=== PATIENT | male | born 1940 | race Caucasian/White ===

== ENCOUNTER 2017-12-03 13:28 | Inpatient (IN) | payer MEDICARE ==
[~2017-12-03] VITALS: Ht 172.7 cm; Wt 97.7 kg
[~2017-12-03 13:28] MED LIST: ASCO500C15 PO; ASPI-1264 PO; ATOR40TA71 PO; CALC-393 PO; CHOL100046 PO; DABI150C PO; FURO-150 PO; LACT1CAP57 PO; LISI-604 PO; METF500T7 PO; METO-395 PO; MULT1TAB74 PO; NALT50TA PO; OMEG1CAP13 PO; RISP0.5T3 PO; TRAV5DRO EACHEYE
[2017-12-03 14:02] LABS: BASOPHILS # (AUTO) 0.1 X10'3 (0-0.2); BASOPHILS % (AUTO) 0.6 % (0-1); EOSINOPHILS # (AUTO) 0.6 X10'3 (0-0.9); EOSINOPHILS % (AUTO) 5.8 % (0-6); HEMATOCRIT 38.1 % (42.0-52.0); HEMOGLOBIN 13.4 g/dl (14.0-17.9); LYMPHOCYTES # (AUTO) 2.6 X10'3 (1.1-4.8); LYMPHOCYTES % (AUTO) 26.2 % (21-51); MEAN CORPUSCULAR HEMOGLOBIN 30.5 PG (27.0-31.0); MEAN CORPUSCULAR VOLUME 87.1 FL (78-98); MEAN PLATELET VOLUME 7.4 FL (7.4-10.4); MONOCYTES # (AUTO) 1.3 X10'3 (0-0.9); MONOCYTES % (AUTO) 12.7 % (2-12); NEUTROPHILS # (AUTO) 5.5 X10'3 (1.8-7.7); NEUTROPHILS % (AUTO) 54.7 % (42-75); PLATELET COUNT 257 X10'3 (140-440); RED BLOOD COUNT 4.38 X10'6 (4.70-6.10); RED CELL DISTRIBUTION WIDTH 14.9 % (11.5-14.5); WHITE BLOOD COUNT 10.1 X10'3 (4.5-11.0)
[2017-12-03 14:12] LABS: INR 1.5 INR; PARTIAL THROMBOPLASTIN TIME 46 SECONDS (22-32); PROTHROMBIN TIME 15.1 SECONDS (9.0-12.0)
[2017-12-03 14:17] LABS: ALANINE AMINOTRANSFERASE 33 U/L (12-78); ALBUMIN 3.3 G/DL (3.4-5.0); ALBUMIN/GLOBULIN RATIO 0.9 (1.1-1.5); ALKALINE PHOSPHATASE 77 IU/L (46-116); ANION GAP 9 (8-16); ASPARTATE AMINO TRANSFERASE 26 U/L (10-37); BILIRUBIN,TOTAL 0.8 MG/DL (0.1-1.0); BLOOD UREA NITROGEN 11 MG/DL (7-18); BUN/CREATININE RATIO 14.7 (5.4-32.0); CALCIUM 9.2 MG/DL (8.5-10.1); CHLORIDE 97 MMOL/L (99-107); CREATININE 0.75 MG/DL (0.60-1.10); GLUCOSE 139 MG/DL (70-104); POTASSIUM 4.2 MMOL/L (3.5-5.1); SODIUM 134 MMOL/L (135-145); TOTAL PROTEIN 7.1 G/DL (6.4-8.2); eGFR > 90 ML/MIN
[2017-12-03] MEDS ORDERED: insulin Lispro (HumaLOG) vial - multi-dose SQ SCH (17:10)
[2017-12-03] MEDS ORDERED: mag hydrox/Alum hydrox/simeth 30ml oral suspension PO PRN (17:10)
[2017-12-03] MEDS ORDERED: MESSAGE TO PHARMACY PO ONE (17:10)
[2017-12-03] MEDS ORDERED: acetaminophen 325mg tablet PO PRN (17:10)
[2017-12-03] MEDS ORDERED: dextrose ORAL solution 15 GM/59 ML bottle PO PRN ×2 (17:10)
[2017-12-03] MEDS ORDERED: dextrose 50%-water 50ml dispensing syringe IV PRN ×2 (17:10)
[2017-12-03] MEDS ORDERED: magnesium hydroxide 30ml (MOM) UD suspension PO PRN (17:10)
[2017-12-03] MEDS ORDERED: glucagon, human recombinant 1mg kit SUBCUT PRN (17:10)
[2017-12-03] MEDS: normal saline 1000ml 1,000 ML IV SCH (17:32)
[2017-12-03 17:39] LABS: MAGNESIUM 1.9 MG/DL (1.5-2.4)
[2017-12-03 17:46] LABS: HEMOGLOBIN A1C 6.4 % (4.5-6.2)
[2017-12-03] MEDS: lactobacillus rhamnosus 10,000 MMU CELLS/CAPSULE PO SCH (20:00)
[2017-12-03] MEDS: dabigatran 150mg capsule PO SCH (20:00)
[2017-12-03] MEDS: ondansetron/PF 4mg/2ml inj IV PRN (20:06)
[2017-12-03 20:22] LABS: CLARITY,URINE Clear (Clear); COLOR,URINE Dark Yellow (Yellow); GLUCOSE, URINE Negative (Neg); KETONES,URINE Negative (Neg); LEUKOCYTE ESTERASE ,URINE Negative (Neg); NITRITES, URINE Negative (Neg); OCCULT BLOOD,URINE Negative (Neg); PH,URINE 8.5 (4.8-8.0); PROTEIN,URINE Negative (Neg)
[2017-12-03 20:24] LABS: UA COLLECTION TYPE VOIDED
[2017-12-03] MEDS: insulin glargine (Lantus) pen - multi-dose SQ SCH (21:00)
[2017-12-03] MEDS: risperiDONE 0.5mg tablet PO SCH (23:08)
[2017-12-04] MEDS: normal saline 1000ml 1,000 ML IV SCH ×3 (03:07→23:07)
[2017-12-04 06:26] LABS: BASOPHILS # (AUTO) 0.1 X10'3 (0-0.2); BASOPHILS % (AUTO) 0.8 % (0-1); EOSINOPHILS # (AUTO) 0.2 X10'3 (0-0.9); EOSINOPHILS % (AUTO) 1.8 % (0-6); HEMATOCRIT 38.2 % (42.0-52.0); HEMOGLOBIN 13.4 g/dl (14.0-17.9); LYMPHOCYTES # (AUTO) 2.5 X10'3 (1.1-4.8); LYMPHOCYTES % (AUTO) 19.5 % (21-51); MEAN CORPUSCULAR HEMOGLOBIN 30.9 PG (27.0-31.0); MEAN CORPUSCULAR VOLUME 88.3 FL (78-98); MEAN PLATELET VOLUME 8.1 FL (7.4-10.4); MONOCYTES # (AUTO) 1.3 X10'3 (0-0.9); MONOCYTES % (AUTO) 10.3 % (2-12); NEUTROPHILS # (AUTO) 8.7 X10'3 (1.8-7.7); NEUTROPHILS % (AUTO) 67.6 % (42-75); PLATELET COUNT 247 X10'3 (140-440); RED BLOOD COUNT 4.33 X10'6 (4.70-6.10); WHITE BLOOD COUNT 12.9 X10'3 (4.5-11.0)
[2017-12-04] MEDS ORDERED: SYN0.088T PO (06:34)
[2017-12-04] MEDS ORDERED: XAL0.005OS OP (06:36)
[2017-12-04] MEDS ORDERED: ESCI10TA54 PO (06:37)
[2017-12-04 06:54] LABS: ALANINE AMINOTRANSFERASE 30 U/L (12-78); ALBUMIN 3.2 G/DL (3.4-5.0); ALBUMIN/GLOBULIN RATIO 0.8 (1.1-1.5); ALKALINE PHOSPHATASE 71 IU/L (46-116); ANION GAP 10 (8-16); ASPARTATE AMINO TRANSFERASE 27 U/L (10-37); BILIRUBIN,TOTAL 1.4 MG/DL (0.1-1.0); BLOOD UREA NITROGEN 11 MG/DL (7-18); BUN/CREATININE RATIO 15.1 (5.4-32.0); CALCIUM 9.3 MG/DL (8.5-10.1); CHLORIDE 100 MMOL/L (99-107); CREATININE 0.73 MG/DL (0.60-1.10); GLUCOSE 126 MG/DL (70-104); POTASSIUM 4.1 MMOL/L (3.5-5.1); SODIUM 135 MMOL/L (135-145); eGFR > 90 ML/MIN
[2017-12-04] MEDS ORDERED: ASCORBIC ACID PO SCH (08:00)
[2017-12-04] MEDS ORDERED: LACTOBACILLUS ACIDOPHILUS PO SCH (08:00)
[2017-12-04] MEDS: dabigatran 150mg capsule PO SCH ×2 (08:00→19:56)
[2017-12-04] MEDS ORDERED: risperiDONE 0.5mg tablet PO SCH (08:00)
[2017-12-04] MEDS: ascorbic acid 500mg tablet PO SCH (08:00)
[2017-12-04] MEDS: risperiDONE 0.5mg tablet PO SCH ×2 (08:00→19:56)
[2017-12-04] MEDS ORDERED: VITAMIN D3 PO SCH (08:00)
[2017-12-04] MEDS ORDERED: CALCIUM CITRATE PO SCH (08:00)
[2017-12-04] MEDS ORDERED: non-formulary drug (Atorvastatin Calcium 1 TABLET) PO SCH (08:00)
[2017-12-04 10:00] VITALS: BP 140/60
[2017-12-04] MEDS: atorvastatin 20mg tablet PO SCH (10:15)
[2017-12-04] MEDS: aspirin 325mg tablet PO SCH (10:15)
[2017-12-04] MEDS: calcium carbonate/vitamin D3 tablet PO SCH (10:15)
[2017-12-04] MEDS: lactobacillus rhamnosus 10,000 MMU CELLS/CAPSULE PO SCH ×2 (10:15→19:56)
[2017-12-04] MEDS: haloperidol lactate 5mg/ml inj IM PRN ×2 (16:57→17:00)
[2017-12-04] MEDS ORDERED: iohexol 350MG/ML 100ml bottle IV ONE (17:31)
[2017-12-04] MEDS: insulin glargine (Lantus) pen - multi-dose SQ SCH (21:00)
[2017-12-04 22:36] VITALS: BP 140/66
[2017-12-05] MEDS: LORazepam 2 mg/ml vial IV PRN ×2 (02:05→10:28)
[2017-12-05 02:18] VITALS: BP 149/79
[2017-12-05 06:00] VITALS: BP 152/79
[2017-12-05 06:23] LABS: BASOPHILS # (AUTO) 0.1 X10'3 (0-0.2); BASOPHILS % (AUTO) 0.5 % (0-1); EOSINOPHILS # (AUTO) 0.4 X10'3 (0-0.9); EOSINOPHILS % (AUTO) 3.3 % (0-6); HEMATOCRIT 35.8 % (42.0-52.0); HEMOGLOBIN 12.5 g/dl (14.0-17.9); LYMPHOCYTES # (AUTO) 2.8 X10'3 (1.1-4.8); MEAN CORPUSCULAR HEMOGLOBIN 30.7 PG (27.0-31.0); MEAN CORPUSCULAR HGB CONC 34.9 % (33.0-36.5); MEAN CORPUSCULAR VOLUME 88.1 FL (78-98); MONOCYTES # (AUTO) 1.5 X10'3 (0-0.9); MONOCYTES % (AUTO) 12.3 % (2-12); NEUTROPHILS # (AUTO) 7.4 X10'3 (1.8-7.7); NEUTROPHILS % (AUTO) 60.9 % (42-75); PLATELET COUNT 244 X10'3 (140-440); RED BLOOD COUNT 4.07 X10'6 (4.70-6.10); RED CELL DISTRIBUTION WIDTH 14.5 % (11.5-14.5); WHITE BLOOD COUNT 12.1 X10'3 (4.5-11.0)
[2017-12-05 06:50] LABS: ALANINE AMINOTRANSFERASE 28 U/L (12-78); ALBUMIN 3.1 G/DL (3.4-5.0); ALBUMIN/GLOBULIN RATIO 0.8 (1.1-1.5); ALKALINE PHOSPHATASE 66 IU/L (46-116); ANION GAP 7 (8-16); ASPARTATE AMINO TRANSFERASE 31 U/L (10-37); BILIRUBIN,TOTAL 1.9 MG/DL (0.1-1.0); BLOOD UREA NITROGEN 10 MG/DL (7-18); BUN/CREATININE RATIO 14.1 (5.4-32.0); CALCIUM 9.4 MG/DL (8.5-10.1); CHLORIDE 104 MMOL/L (99-107); CHOL/HDL RATIO 2.3 (0.00-4.99); CHOLESTEROL 114 MG/DL (0-200); CREATININE 0.71 MG/DL (0.60-1.10); GLUCOSE 100 MG/DL (70-104); HDL CHOLESTEROL 49 MG/DL (35-60); LDL CHOLESTEROL 56 MG/DL (50-100); POTASSIUM 4.2 MMOL/L (3.5-5.1); SODIUM 139 MMOL/L (135-145); TOTAL CARBON DIOXIDE 27.9 MMOL/L (24-32); TOTAL PROTEIN 6.8 G/DL (6.4-8.2); TRIGLYCERIDES 56 MG/DL (20-135); eGFR > 90 ML/MIN
[2017-12-05 10:00] VITALS: BP 139/87
[2017-12-05] MEDS: dabigatran 150mg capsule PO SCH ×2 (10:29→21:09)
[2017-12-05] MEDS: atorvastatin 20mg tablet PO SCH (10:29)
[2017-12-05] MEDS: calcium carbonate/vitamin D3 tablet PO SCH (10:30)
[2017-12-05] MEDS: aspirin 325mg tablet PO SCH (10:30)
[2017-12-05] MEDS: ascorbic acid 500mg tablet PO SCH (10:30)
[2017-12-05] MEDS: lactobacillus rhamnosus 10,000 MMU CELLS/CAPSULE PO SCH ×2 (10:51→21:10)
[2017-12-05] MEDS: risperiDONE 0.5mg tablet PO SCH ×2 (10:51→21:10)
[2017-12-05] MEDS ORDERED: iohexol 350MG/ML 100ml bottle IV ONE (11:28)
[2017-12-05 15:00] VITALS: BP 146/79
[2017-12-05] MEDS: normal saline 1000ml 1,000 ML IV SCH ×2 (19:04→19:07)
[2017-12-05] MEDS: insulin glargine (Lantus) pen - multi-dose SQ SCH (21:00)
[2017-12-05 22:00] VITALS: BP 144/86
[2017-12-06] MEDS: LORazepam 2 mg/ml vial IV PRN (00:40)
[2017-12-06 02:00] VITALS: BP 132/70
[2017-12-06] MEDS: normal saline 1000ml 1,000 ML IV SCH ×2 (05:07→15:07)
[2017-12-06 06:00] VITALS: BP 129/87
[2017-12-06 06:00] LABS: BASOPHILS # (AUTO) 0.1 X10'3 (0-0.2); BASOPHILS % (AUTO) 0.6 % (0-1); EOSINOPHILS # (AUTO) 0.6 X10'3 (0-0.9); EOSINOPHILS % (AUTO) 4.4 % (0-6); HEMATOCRIT 38.4 % (42.0-52.0); HEMOGLOBIN 13.6 g/dl (14.0-17.9); LYMPHOCYTES # (AUTO) 2.5 X10'3 (1.1-4.8); LYMPHOCYTES % (AUTO) 18.4 % (21-51); MEAN CORPUSCULAR HEMOGLOBIN 30.8 PG (27.0-31.0); MEAN CORPUSCULAR HGB CONC 35.3 % (33.0-36.5); MEAN CORPUSCULAR VOLUME 87.4 FL (78-98); MONOCYTES # (AUTO) 1.7 X10'3 (0-0.9); MONOCYTES % (AUTO) 12.3 % (2-12); NEUTROPHILS # (AUTO) 8.7 X10'3 (1.8-7.7); NEUTROPHILS % (AUTO) 64.3 % (42-75); PLATELET COUNT 252 X10'3 (140-440); RED CELL DISTRIBUTION WIDTH 14.8 % (11.5-14.5); WHITE BLOOD COUNT 13.5 X10'3 (4.5-11.0)
[2017-12-06 06:21] LABS: ALANINE AMINOTRANSFERASE 29 U/L (12-78); ALBUMIN 3.2 G/DL (3.4-5.0); ALBUMIN/GLOBULIN RATIO 0.8 (1.1-1.5); ALKALINE PHOSPHATASE 72 IU/L (46-116); ANION GAP 11 (8-16); ASPARTATE AMINO TRANSFERASE 29 U/L (10-37); BILIRUBIN,TOTAL 2.3 MG/DL (0.1-1.0); BLOOD UREA NITROGEN 10 MG/DL (7-18); BUN/CREATININE RATIO 14.9 (5.4-32.0); CALCIUM 9.5 MG/DL (8.5-10.1); CHLORIDE 101 MMOL/L (99-107); CREATININE 0.67 MG/DL (0.60-1.10); GLUCOSE 105 MG/DL (70-104); POTASSIUM 3.9 MMOL/L (3.5-5.1); SODIUM 138 MMOL/L (135-145); TOTAL CARBON DIOXIDE 25.8 MMOL/L (24-32); TOTAL PROTEIN 7.2 G/DL (6.4-8.2); eGFR > 90 ML/MIN
[2017-12-06] MEDS: dabigatran 150mg capsule PO SCH ×2 (09:16→21:23)
[2017-12-06] MEDS: calcium carbonate/vitamin D3 tablet PO SCH (09:16)
[2017-12-06] MEDS: risperiDONE 0.5mg tablet PO SCH ×2 (09:16→21:23)
[2017-12-06] MEDS: aspirin 325mg tablet PO SCH (09:16)
[2017-12-06] MEDS: lactobacillus rhamnosus 10,000 MMU CELLS/CAPSULE PO SCH ×2 (09:16→21:23)
[2017-12-06] MEDS: atorvastatin 20mg tablet PO SCH (09:16)
[2017-12-06] MEDS: ascorbic acid 500mg tablet PO SCH (09:17)
[2017-12-06 10:00] VITALS: BP 135/81
[2017-12-06 17:00] VITALS: BP 137/78
[2017-12-06] MEDS: insulin glargine (Lantus) pen - multi-dose SQ SCH (21:00)
[2017-12-06 22:00] VITALS: BP 154/77
[2017-12-07 06:00] VITALS: BP 111/90
[2017-12-07 06:35] LABS: BASOPHILS % (AUTO) 0.3 % (0-1); EOSINOPHILS # (AUTO) 0.5 X10'3 (0-0.9); EOSINOPHILS % (AUTO) 4.6 % (0-6); HEMATOCRIT 38.4 % (42.0-52.0); HEMOGLOBIN 13.2 g/dl (14.0-17.9); LYMPHOCYTES % (AUTO) 17.5 % (21-51); MEAN CORPUSCULAR HEMOGLOBIN 30.4 PG (27.0-31.0); MEAN CORPUSCULAR HGB CONC 34.4 % (33.0-36.5); MEAN CORPUSCULAR VOLUME 88.3 FL (78-98); MEAN PLATELET VOLUME 7.8 FL (7.4-10.4); MONOCYTES # (AUTO) 1.7 X10'3 (0-0.9); MONOCYTES % (AUTO) 14.2 % (2-12); NEUTROPHILS # (AUTO) 7.4 X10'3 (1.8-7.7); NEUTROPHILS % (AUTO) 63.4 % (42-75); PLATELET COUNT 252 X10'3 (140-440); RED BLOOD COUNT 4.35 X10'6 (4.70-6.10); RED CELL DISTRIBUTION WIDTH 14.8 % (11.5-14.5); WHITE BLOOD COUNT 11.7 X10'3 (4.5-11.0)
[2017-12-07 07:09] LABS: ALANINE AMINOTRANSFERASE 28 U/L (12-78); ALBUMIN 3.1 G/DL (3.4-5.0); ALBUMIN/GLOBULIN RATIO 0.8 (1.1-1.5); ALKALINE PHOSPHATASE 71 IU/L (46-116); ANION GAP 10 (8-16); ASPARTATE AMINO TRANSFERASE 29 U/L (10-37); BILIRUBIN,TOTAL 2.3 MG/DL (0.1-1.0); BLOOD UREA NITROGEN 10 MG/DL (7-18); BUN/CREATININE RATIO 15.2 (5.4-32.0); CALCIUM 9.3 MG/DL (8.5-10.1); CHLORIDE 104 MMOL/L (99-107); CREATININE 0.66 MG/DL (0.60-1.10); GLUCOSE 114 MG/DL (70-104); POTASSIUM 3.6 MMOL/L (3.5-5.1); SODIUM 140 MMOL/L (135-145); eGFR > 90 ML/MIN
[2017-12-07] MEDS: atorvastatin 20mg tablet PO SCH (07:47)
[2017-12-07] MEDS: risperiDONE 0.5mg tablet PO SCH ×2 (07:48→20:12)
[2017-12-07] MEDS: lactobacillus rhamnosus 10,000 MMU CELLS/CAPSULE PO SCH ×2 (07:48→20:12)
[2017-12-07] MEDS: dabigatran 150mg capsule PO SCH ×2 (07:48→20:12)
[2017-12-07] MEDS: ascorbic acid 500mg tablet PO SCH (07:48)
[2017-12-07] MEDS: calcium carbonate/vitamin D3 tablet PO SCH (07:48)
[2017-12-07] MEDS: aspirin 325mg tablet PO SCH (07:48)
[2017-12-07 10:00] VITALS: BP 130/55
[2017-12-07 18:00] VITALS: BP 133/62
[2017-12-07] MEDS: insulin glargine (Lantus) pen - multi-dose SQ SCH (21:00)
[2017-12-07 22:00] VITALS: BP 112/67
[2017-12-08 05:28] LABS: BASOPHILS # (AUTO) 0.1 X10'3 (0-0.2); BASOPHILS % (AUTO) 0.6 % (0-1); EOSINOPHILS # (AUTO) 0.7 X10'3 (0-0.9); EOSINOPHILS % (AUTO) 5.9 % (0-6); HEMATOCRIT 39.2 % (42.0-52.0); HEMOGLOBIN 13.7 g/dl (14.0-17.9); LYMPHOCYTES % (AUTO) 25.8 % (21-51); MEAN CORPUSCULAR HEMOGLOBIN 30.5 PG (27.0-31.0); MEAN CORPUSCULAR HGB CONC 34.9 % (33.0-36.5); MEAN CORPUSCULAR VOLUME 87.2 FL (78-98); MEAN PLATELET VOLUME 7.9 FL (7.4-10.4); MONOCYTES # (AUTO) 1.2 X10'3 (0-0.9); MONOCYTES % (AUTO) 10.9 % (2-12); NEUTROPHILS # (AUTO) 6.5 X10'3 (1.8-7.7); NEUTROPHILS % (AUTO) 56.8 % (42-75); PLATELET COUNT 260 X10'3 (140-440); RED CELL DISTRIBUTION WIDTH 14.4 % (11.5-14.5); WHITE BLOOD COUNT 11.4 X10'3 (4.5-11.0)
[2017-12-08 05:44] LABS: ALANINE AMINOTRANSFERASE 27 U/L (12-78); ALBUMIN/GLOBULIN RATIO 0.8 (1.1-1.5); ALKALINE PHOSPHATASE 76 IU/L (46-116); ANION GAP 11 (8-16); ASPARTATE AMINO TRANSFERASE 27 U/L (10-37); BILIRUBIN,TOTAL 2.1 MG/DL (0.1-1.0); BLOOD UREA NITROGEN 10 MG/DL (7-18); BUN/CREATININE RATIO 14.7 (5.4-32.0); CALCIUM 9.3 MG/DL (8.5-10.1); CHLORIDE 102 MMOL/L (99-107); CREATININE 0.68 MG/DL (0.60-1.10); GLUCOSE 103 MG/DL (70-104); POTASSIUM 3.8 MMOL/L (3.5-5.1); SODIUM 138 MMOL/L (135-145); TOTAL CARBON DIOXIDE 25.3 MMOL/L (24-32); TOTAL PROTEIN 6.9 G/DL (6.4-8.2); eGFR > 90 ML/MIN
[2017-12-08 06:00] VITALS: BP 140/81
[2017-12-08] MEDS: risperiDONE 0.5mg tablet PO SCH ×2 (07:28→19:43)
[2017-12-08] MEDS: aspirin 325mg tablet PO SCH (07:28)
[2017-12-08] MEDS: lactobacillus rhamnosus 10,000 MMU CELLS/CAPSULE PO SCH ×2 (07:28→19:43)
[2017-12-08] MEDS: atorvastatin 20mg tablet PO SCH (07:28)
[2017-12-08] MEDS: ascorbic acid 500mg tablet PO SCH (07:28)
[2017-12-08] MEDS: calcium carbonate/vitamin D3 tablet PO SCH (07:28)
[2017-12-08] MEDS: dabigatran 150mg capsule PO SCH ×2 (07:29→19:43)
[2017-12-08 10:00] VITALS: BP 145/84
[2017-12-08] MEDS ORDERED: bisacodyl 10mg suppository rectal RC PRN (12:50)
[2017-12-08 18:00] VITALS: BP 142/71
[2017-12-08] MEDS: insulin glargine (Lantus) pen - multi-dose SQ SCH (21:00)
[2017-12-08 22:00] VITALS: BP 133/56
[2017-12-09] MEDS: LORazepam 2 mg/ml vial IV PRN (00:14)
[2017-12-09 06:00] VITALS: BP 152/79
[2017-12-09] MEDS: atorvastatin 20mg tablet PO SCH (09:14)
[2017-12-09] MEDS: dabigatran 150mg capsule PO SCH ×2 (09:14→20:45)
[2017-12-09] MEDS: aspirin 325mg tablet PO SCH (09:15)
[2017-12-09] MEDS: calcium carbonate/vitamin D3 tablet PO SCH (09:15)
[2017-12-09] MEDS: lactobacillus rhamnosus 10,000 MMU CELLS/CAPSULE PO SCH ×2 (09:15→20:45)
[2017-12-09] MEDS: risperiDONE 0.5mg tablet PO SCH ×2 (09:15→20:45)
[2017-12-09] MEDS: ascorbic acid 500mg tablet PO SCH (09:15)
[2017-12-09] MEDS: polyvinyl alcohol ophthalmic drops 15ml bottle EACHEYE PRN ×2 (09:18→20:48)
[2017-12-09 10:00] VITALS: BP 155/83
[2017-12-09] MEDS: ondansetron/PF 4mg/2ml inj IV PRN (13:21)
[2017-12-09] MEDS ORDERED: lactulose 20gm/30ml cup PO ONE (14:25)
[2017-12-09] MEDS ORDERED: mineral oil 133ml enema RC PRN (14:30)
[2017-12-09 15:00] VITALS: BP 129/72
[2017-12-09 18:00] VITALS: BP 140/71
[2017-12-09] MEDS: insulin glargine (Lantus) pen - multi-dose SQ SCH (21:00)
[2017-12-09 22:00] VITALS: BP 150/77
[2017-12-10 05:51] LABS: BASOPHILS # (AUTO) 0.1 X10'3 (0-0.2); BASOPHILS % (AUTO) 0.7 % (0-1); EOSINOPHILS # (AUTO) 0.8 X10'3 (0-0.9); EOSINOPHILS % (AUTO) 6.7 % (0-6); HEMATOCRIT 39.8 % (42.0-52.0); HEMOGLOBIN 13.8 g/dl (14.0-17.9); LYMPHOCYTES # (AUTO) 2.7 X10'3 (1.1-4.8); LYMPHOCYTES % (AUTO) 22.2 % (21-51); MEAN CORPUSCULAR HEMOGLOBIN 30.5 PG (27.0-31.0); MEAN CORPUSCULAR HGB CONC 34.7 % (33.0-36.5); MEAN PLATELET VOLUME 7.8 FL (7.4-10.4); MONOCYTES # (AUTO) 1.4 X10'3 (0-0.9); MONOCYTES % (AUTO) 11.7 % (2-12); NEUTROPHILS # (AUTO) 7.3 X10'3 (1.8-7.7); NEUTROPHILS % (AUTO) 58.7 % (42-75); PLATELET COUNT 284 X10'3 (140-440); RED BLOOD COUNT 4.52 X10'6 (4.70-6.10); RED CELL DISTRIBUTION WIDTH 14.8 % (11.5-14.5); WHITE BLOOD COUNT 12.4 X10'3 (4.5-11.0)
[2017-12-10 06:00] VITALS: BP 118/72
[2017-12-10 06:42] LABS: ALANINE AMINOTRANSFERASE 27 U/L (12-78); ALBUMIN/GLOBULIN RATIO 0.7 (1.1-1.5); ALKALINE PHOSPHATASE 81 IU/L (46-116); ANION GAP 10 (8-16); ASPARTATE AMINO TRANSFERASE 27 U/L (10-37); BILIRUBIN,TOTAL 1.9 MG/DL (0.1-1.0); BLOOD UREA NITROGEN 8 MG/DL (7-18); BUN/CREATININE RATIO 11.8 (5.4-32.0); CALCIUM 9.6 MG/DL (8.5-10.1); CHLORIDE 104 MMOL/L (99-107); CREATININE 0.68 MG/DL (0.60-1.10); GLUCOSE 98 MG/DL (70-104); POTASSIUM 3.9 MMOL/L (3.5-5.1); SODIUM 139 MMOL/L (135-145); TOTAL CARBON DIOXIDE 25.2 MMOL/L (24-32); TOTAL PROTEIN 7.1 G/DL (6.4-8.2); eGFR > 90 ML/MIN
[2017-12-10] MEDS: lactobacillus rhamnosus 10,000 MMU CELLS/CAPSULE PO SCH (08:30)
[2017-12-10] MEDS: ascorbic acid 500mg tablet PO SCH (08:30)
[2017-12-10] MEDS: calcium carbonate/vitamin D3 tablet PO SCH (08:30)
[2017-12-10] MEDS: dabigatran 150mg capsule PO SCH (08:30)
[2017-12-10] MEDS: aspirin 325mg tablet PO SCH (08:30)
[2017-12-10] MEDS: atorvastatin 20mg tablet PO SCH (08:30)
[2017-12-10] MEDS: risperiDONE 0.5mg tablet PO SCH (08:30)
[2017-12-10] MEDS: polyvinyl alcohol ophthalmic drops 15ml bottle EACHEYE PRN (08:33)
[2017-12-10 10:00] VITALS: BP 131/66
[2017-12-10] MEDS: LORazepam 2 mg/ml vial IV PRN (14:41)
== END 2017-12-10 15:05 | DRG 65 ==
LOC: ER 13:28 → ED HOLD 17:07 → ORTHO 4S 12-04 09:00
PROVIDERS: ADMIT Family Medicine; ATTEND Family Medicine
PROC: B3251ZZ Computerized Tomography (CT Scan) of Bilateral Common Carotid Arteries using Low Osmolar Contrast (ICD-10-PCS; principal; 2017-12-05)
PROC: B32G1ZZ Computerized Tomography (CT Scan) of Bilateral Vertebral Arteries using Low Osmolar Contrast (ICD-10-PCS; 2017-12-05)
PROC: B3201ZZ Computerized Tomography (CT Scan) of Thoracic Aorta using Low Osmolar Contrast (ICD-10-PCS; 2017-12-05)
PROC: B3281ZZ Computerized Tomography (CT Scan) of Bilateral Internal Carotid Arteries using Low Osmolar Contrast (ICD-10-PCS; 2017-12-05)
DX: I63.10 Cerebral infarction due to embolism of unspecified precerebral artery (principal); G81.94 Hemiplegia, unspecified affecting left nondominant side; L89.322 Pressure ulcer of left buttock, stage 2; I48.91 Unspecified atrial fibrillation; I49.5 Sick sinus syndrome; D72.829 Elevated white blood cell count, unspecified; E11.9 Type 2 diabetes mellitus without complications; E78.00 Pure hypercholesterolemia, unspecified; F03.90 Unspecified dementia, unspecified severity, without behavioral disturbance, psychotic disturbance, mood disturbance, and anxiety; I10 Essential (primary) hypertension; K56.41 Fecal impaction; H53.2 Diplopia; I49.3 Ventricular premature depolarization; Z66 Do not resuscitate; Z79.01 Long term (current) use of anticoagulants; Z79.82 Long term (current) use of aspirin; Z79.899 Other long term (current) drug therapy; Z87.891 Personal history of nicotine dependence; Z82.3 Family history of stroke; Z82.5 Family history of asthma and other chronic lower respiratory diseases; Z82.49 Family history of ischemic heart disease and other diseases of the circulatory system
CPT/HCPCS: 36415; 70450; 70496; 70498; 71045; 80053; 80061; 81003; 82248; 82948; 83036; 83735; 84145; 85025; 85610; 85730; 87040; 87070; 92616; 93005; 93306; 93880; 97110; 97116; 97161; 97530; 99285; A6212; A6449; J1630; J1815; J2060; J2405; J7030; Q9967

== ENCOUNTER 2019-04-14 18:59 | Inpatient (IN) | payer MEDICARE, MEDICAID ==
[~2019-04-14] VITALS: Ht 175.3 cm; Wt 100.0 kg
[~2019-04-14 18:59] MED LIST changes: -CHOL100046 PO; +ESCI10TA54 PO; -FURO-150 PO; -LACT1CAP57 PO; -METF500T7 PO; -MULT1TAB74 PO; -NALT50TA PO; -RISP0.5T3 PO; +SYN0.088T PO; -TRAV5DRO EACHEYE; +XAL0.005OS OP
--- NOTE | 2019-04-14 19:30 | NUR ---
ATTEMPTED TO PLACE F/C ON ARRIVAL TO ED, UNABLE TO ADVANCE CATHETER. I ATTEMPTED TWO TIMES. KIM GATICA NOTIFIED AND UROLOGIST CONTACTED.
[2019-04-14] MEDS ORDERED: morphine 4 MG/ML inj SYRINge IV ONE (19:35)
[2019-04-14] MEDS ORDERED: ondansetron/PF 4mg/2ml inj IV ONE (19:35)
[2019-04-14] MEDS ORDERED: normal saline 1000ML IV soln IV ONE (19:50)
[2019-04-14 19:59] LABS: BASOPHILS # (AUTO) 0.1 X10'3 (0-0.2); BASOPHILS % (AUTO) 0.7 % (0-1); EOSINOPHILS # (AUTO) 0.2 X10'3 (0-0.9); EOSINOPHILS % (AUTO) 1.6 % (0-6); HEMATOCRIT 39.3 % (42.0-52.0); HEMOGLOBIN 13.1 g/dl (14.0-17.9); LYMPHOCYTES # (AUTO) 1.1 X10'3 (1.1-4.8); MEAN CORPUSCULAR HEMOGLOBIN 29.5 PG (27.0-31.0); MEAN CORPUSCULAR HGB CONC 33.3 g/dL (33.0-36.5); MEAN CORPUSCULAR VOLUME 88.7 FL (78-98); MEAN PLATELET VOLUME 7.7 FL (7.4-10.4); MONOCYTES # (AUTO) 0.2 X10'3 (0-0.9); NEUTROPHILS # (AUTO) 10.4 X10'3 (1.8-7.7); NEUTROPHILS % (AUTO) 86.7 % (42-75); PLATELET COUNT 223 X10'3 (140-440); RED BLOOD COUNT 4.43 X10'6 (4.70-6.10); RED CELL DISTRIBUTION WIDTH 14.6 % (11.5-14.5)
[2019-04-14 20:12] LABS: ALANINE AMINOTRANSFERASE 46 U/L (12-78); ALBUMIN 2.6 G/DL (3.4-5.0); ALBUMIN/GLOBULIN RATIO 0.5 (1.1-1.5); ALKALINE PHOSPHATASE 102 IU/L (46-116); ANION GAP 9 (8-16); ASPARTATE AMINO TRANSFERASE 56 U/L (10-37); BLOOD UREA NITROGEN 19 MG/DL (7-18); BUN/CREATININE RATIO 16.1 (5.4-32.0); CALCIUM 8.8 MG/DL (8.5-10.1); CHLORIDE 101 MMOL/L (99-107); CREATININE 1.18 MG/DL (0.60-1.10); GLUCOSE 115 MG/DL (70-104); SODIUM 136 MMOL/L (135-145); TOTAL CARBON DIOXIDE 25.8 MMOL/L (24-32); TOTAL PROTEIN 7.4 G/DL (6.4-8.2); eGFR 60 ML/MIN
[2019-04-14] MEDS ORDERED: LIDOcaine 2% 10ml TOPICAL JELLY (Urojet) MM ONE ×2 (20:45→21:35)
[2019-04-14] MEDS ORDERED: normal saline 1000ML IV soln IVB ONE (21:15)
[2019-04-14] MEDS ORDERED: CefTRIAXone 2gm/D5W 50ml 50 ML IV ONE (21:15)
[2019-04-14] MEDS ORDERED: acetaminophen 325mg tablet PO PRN ×2 (21:45)
[2019-04-14] MEDS ORDERED: ondansetron/PF 4mg/2ml inj IV PRN (21:45)
[2019-04-14] MEDS ORDERED: magnesium hydroxide 30ml (MOM) UD suspension PO PRN (21:45)
[2019-04-14] MEDS ORDERED: magnesium 4gm in 100ml NS 100 ML IV PRN (21:45)
[2019-04-14] MEDS ORDERED: magnesium Cl slow-release 64mg tablet PO PRN (21:45)
[2019-04-14] MEDS ORDERED: potassium Cl 20 mEq SR tablet PO PRN ×2 (21:45)
[2019-04-14] MEDS ORDERED: magnesium 2GM in 50ml NS 50 ML IV PRN (21:45)
[2019-04-14] MEDS ORDERED: mag hydrox/Alum hydrox/simeth 30ml oral suspension PO PRN (21:45)
[2019-04-14] MEDS ORDERED: morphine 2 MG/ML inj. syringe IV PRN ×2 (21:45)
[2019-04-14] MEDS ORDERED: potassium CL 10mEq/100ml bag 100 ML IV PRN ×2 (21:45)
--- NOTE | 2019-04-14 22:02 | NUR ---
UROLOGIST AT BEDSIDE.
--- NOTE | 2019-04-14 22:40 | NUR ---
Received report from Torsten MASON. Will assume patient care.
--- NOTE | 2019-04-14 23:01 | NUR ---
UROLOGIST PLACED F/C, F/C IS SET UP WITH CBI, URINE IS CLEAR YELLOW. F/C IS PATENT AND DRAINING.
--- NOTE | 2019-04-14 23:30 | NUR ---
Patient arrived to floor with continuous irrigation. Urine is clearing, yellow and cloudy in color. Rate going is really slow. Per transport nurse Dr. Kimball wanted it at that rate. Family accompanied patient. Jannie will come back in the morning to answer admitting questions. Per daughter and . Patient has dementia, Baseline line he is confuse and tugs on tubing.
[2019-04-15] VITALS: BP 106/50
[2019-04-15] MEDS ORDERED: normal saline 1000ml 1,000 ML IV ONE (00:20)
--- NOTE | 2019-04-15 00:20 | NUR ---
Dr. Villaseñor notified. Orders for CBI, nurse to adjust rate for urine to be yellow. Continue with Sterile Irrigation fluids with CBI. MD aware no UA was done, He would like one still with the CBI. Will continue with care.
--- NOTE | 2019-04-15 00:40 | NUR ---
Xraytechnician here to obtain CxR.
--- NOTE | 2019-04-15 01:00 | NUR ---
UA collected and sent to lab.
[2019-04-15 01:59] LABS: CLARITY,URINE CLEAR (Clear); COLOR,URINE YELLOW (Yellow); GLUCOSE, URINE NEGATIVE (Neg); KETONES,URINE NEGATIVE (Neg); LEUKOCYTE ESTERASE ,URINE LARGE (Neg); NITRITES, URINE NEGATIVE (Neg); OCCULT BLOOD,URINE LARGE (Neg); PROTEIN,URINE NEGATIVE (Neg); UROBILINOGEN,URINE 0.2 E.U/dL (0.2-1.0)
[2019-04-15 02:00] LABS: UA COLLECTION TYPE URINAL
[2019-04-15 02:06] LABS: BACTERIA,URINE NONE SEEN /HPF (Neg); SQUAMOUS EPITHELIAL CELL,UR FEW /LPF (FEW)
[2019-04-15 02:07] LABS: MUCUS STRANDS NONE SEEN /LPF (Neg)
[2019-04-15] MEDS ORDERED: [UNRECOGNIZED DRUG - CODE] PO (02:26)
[2019-04-15] MEDS ORDERED: LOPE-144 PO (02:59)
[2019-04-15] MEDS ORDERED: MELA3TAB64 PO (02:59)
[2019-04-15] MEDS ORDERED: RISP0.5T74 PO ×2 (02:59)
[2019-04-15] MEDS ORDERED: CHOL400T32 PO (02:59)
[2019-04-15] MEDS ORDERED: NA P133E4 RC (02:59)
[2019-04-15] MEDS ORDERED: METF500T PO (02:59)
[2019-04-15] MEDS ORDERED: AMOX-422 PO (02:59)
[2019-04-15] MEDS ORDERED: FURO-150 PO (02:59)
[2019-04-15] MEDS ORDERED: TOLT4CAP PO (02:59)
[2019-04-15] MEDS ORDERED: DOCU100C41 PO (02:59)
[2019-04-15] MEDS ORDERED: POLY17PO10 PO (02:59)
[2019-04-15] MEDS ORDERED: CRAN450C PO (02:59)
[2019-04-15] MEDS ORDERED: BISA10SU60 PR (02:59)
[2019-04-15] MEDS ORDERED: ACET-2119 PO (02:59)
[2019-04-15] MEDS ORDERED: dextrose ORAL solution 15 GM/59 ML bottle PO PRN ×2 (03:25)
[2019-04-15] MEDS ORDERED: insulin Lispro (HumaLOG) vial - multi-dose SQ SCH (03:25)
[2019-04-15] MEDS ORDERED: dextrose 50%-water 50ml dispensing syringe IV PRN ×2 (03:25)
[2019-04-15] MEDS ORDERED: polyethylene glycol 3350 17gm powd pack PO PRN (03:25)
[2019-04-15] MEDS ORDERED: MESSAGE TO PHARMACY PO ONE (03:25)
[2019-04-15] MEDS ORDERED: glucagon, human recombinant 1mg kit SUBCUT PRN (03:25)
[2019-04-15 05:21] LABS: BASOPHILS # (AUTO) 0.1 X10'3 (0-0.2); BASOPHILS % (AUTO) 0.4 % (0-1); EOSINOPHILS % (AUTO) 0.1 % (0-6); HEMATOCRIT 34.2 % (42.0-52.0); HEMOGLOBIN 11.4 g/dl (14.0-17.9); LYMPHOCYTES # (AUTO) 1.3 X10'3 (1.1-4.8); MEAN CORPUSCULAR HEMOGLOBIN 29.7 PG (27.0-31.0); MEAN CORPUSCULAR HGB CONC 33.2 g/dL (33.0-36.5); MEAN CORPUSCULAR VOLUME 89.5 FL (78-98); MEAN PLATELET VOLUME 8.5 FL (7.4-10.4); MONOCYTES # (AUTO) 2.3 X10'3 (0-0.9); MONOCYTES % (AUTO) 8.9 % (2-12); NEUTROPHILS # (AUTO) 21.9 X10'3 (1.8-7.7); NEUTROPHILS % (AUTO) 85.6 % (42-75); PLATELET COUNT 203 X10'3 (140-440); RED BLOOD COUNT 3.82 X10'6 (4.70-6.10); RED CELL DISTRIBUTION WIDTH 14.4 % (11.5-14.5)
[2019-04-15 05:25] LABS: ALBUMIN 2.1 G/DL (3.4-5.0); ANION GAP 10 (8-16); BLOOD UREA NITROGEN 18 MG/DL (7-18); BUN/CREATININE RATIO 19.6 (5.4-32.0); CALCIUM 8.1 MG/DL (8.5-10.1); CHLORIDE 104 MMOL/L (99-107); CREATININE 0.92 MG/DL (0.60-1.10); GLUCOSE 138 MG/DL (70-104); MAGNESIUM 1.8 MG/DL (1.5-2.4); POTASSIUM 4.2 MMOL/L (3.5-5.1); SODIUM 138 MMOL/L (135-145); TOTAL CARBON DIOXIDE 24.4 MMOL/L (24-32); eGFR 79 ML/MIN
[2019-04-15 06:00] LABS: WHITE BLOOD COUNT 25.5 X10'3 (4.5-11.0)
--- NOTE | 2019-04-15 06:10 | NUR ---
Critical WBC 25.5. Dr. Villaseñor notified.
--- NOTE | 2019-04-15 06:37 | NUR ---
Problems reprioritized. Patient report given, questions answered & plan of care reviewed with Karthik MASON.
[2019-04-15 06:48] VITALS: BP 140/72
[2019-04-15] MEDS: oxybutynin 5mg tablet PO SCH ×3 (07:43→20:29)
[2019-04-15] MEDS: lactobacillus rhamnosus 10,000 MMU CELLS/CAPSULE PO SCH ×2 (07:43→19:10)
[2019-04-15] MEDS: atorvastatin 20mg tablet PO SCH (07:43)
[2019-04-15] MEDS: cholecalciferol (vitamin D) 400 unit tablet PO SCH (07:44)
[2019-04-15] MEDS: metoprolol succinate 25mg (24-HOUR) SR. Tablet PO SCH ×2 (07:44→19:10)
[2019-04-15] MEDS: calcium carbonate/vitamin D3 tablet PO SCH (07:44)
[2019-04-15] MEDS: levoTHYROXINE 88mcg tablet PO SCH (07:44)
[2019-04-15] MEDS: furosemide 20MG tablet PO SCH (07:44)
[2019-04-15] MEDS: lisinopril 5mg tablet PO SCH (07:45)
[2019-04-15] MEDS: ascorbic acid 500mg tablet PO SCH (07:45)
[2019-04-15] MEDS: risperiDONE 0.5mg tablet PO SCH (07:45)
[2019-04-15] MEDS: K and/or MAG REPLACEMENT MC SCH (07:51)
[2019-04-15] MEDS ORDERED: NA PHOS M B RC SCH (08:00)
[2019-04-15] MEDS ORDERED: NA PHOS DI BA RC SCH (08:00)
[2019-04-15] MEDS ORDERED: CRANBERRY FRUIT 450 MG PO SCH (08:00)
[2019-04-15 08:49] LABS: NUCLEATED RED BLOOD CELLS 15 /100WBC (0-0); TOTAL CELLS COUNTED 100
[2019-04-15 08:50] LABS: PLATELET ESTIMATE NORMAL
[2019-04-15] MEDS ORDERED: pneumococcal 23-VAL P-sac vacc 25 mcg/0.5ml vial IMVAC ONE (10:00)
[2019-04-15 10:57] VITALS: BP 100/55
[2019-04-15] MEDS: HYDROcodone/acetaminophen 5mg/325mg tablet PO PRN (16:12)
--- NOTE | 2019-04-15 18:16 | NUR ---
Received report from ISABELLA Angeles. Patient is awake and alert on room air, in no apparent distress. Call light and items of frequent use within reach. Will continue to monitor.
--- NOTE | 2019-04-15 18:24 | NUR ---
Problems reprioritized. Patient report given, questions answered & plan of care reviewed with ISABELLA MORALES.
[2019-04-15 20:00] VITALS: BP 102/55
[2019-04-15] MEDS: docusate sod 100mg capsule PO SCH (20:29)
[2019-04-15] MEDS: Melatonin 3mg tablet PO SCH (20:29)
[2019-04-15] MEDS: CefTRIAXone 2gm/D5W 50ml 50 ML IV SCH (20:30)
[2019-04-15] MEDS: risperiDONE 0.25mg tablet PO SCH (20:36)
[2019-04-15] MEDS: insulin glargine (Lantus) pen - multi-dose SQ SCH (20:39)
[2019-04-16] VITALS: BP 112/62
--- NOTE | 2019-04-16 01:12 | NUR ---
PCT notified that patient suddenly developed shortness of breath and wheezing, oozed blood from penis as well. Lungs bilaterally wheezy and diminished at bases upon auscultation. SpO2 91% on room air, placed on 2L O2 and saturation came up to 95%. Antonieta Roldan MD and came to bedside for evaluation. Ordered CXR single view, Lasix 40mg/4mL and RT eval and treat. Will continue to monitor.
[2019-04-16] MEDS ORDERED: furosemide 40mg/4ml inj IV ONE (01:25)
--- NOTE | 2019-04-16 01:28 | NUR ---
Bladder scanned patient upon MD order. No (0 cc) amount of urine was found in bladder. MD Yuli stated that "it seems to be flash pulmonary edema. Give the one time dose of Lasix 40mg now, he should have at least 250 cc urine output. Then do chest xray and see what RT says. Thank you" Administered Lasix 40mg along with ISABELLA Gunn as ordered. Xray aviation survival technician and PCT at beside. Will continue to monitor.
[2019-04-16] MEDS ORDERED: albuterol 2.5 MG/3 ML nebule NEB ONE (01:45)
--- NOTE | 2019-04-16 02:10 | NUR ---
Patient resting comfortably. PCT at bedside.
--- NOTE | 2019-04-16 03:56 | NUR ---
Patient denies any pain, discomfort at this time. Resting comfortably. PCT at bedside.
[2019-04-16 04:51] LABS: BASOPHILS # (AUTO) 0.1 X10'3 (0-0.2); BASOPHILS % (AUTO) 0.8 % (0-1); EOSINOPHILS # (AUTO) 0.1 X10'3 (0-0.9); EOSINOPHILS % (AUTO) 1.1 % (0-6); HEMATOCRIT 33.6 % (42.0-52.0); HEMOGLOBIN 11.4 g/dl (14.0-17.9); LYMPHOCYTES # (AUTO) 1.5 X10'3 (1.1-4.8); LYMPHOCYTES % (AUTO) 11.3 % (21-51); MEAN CORPUSCULAR HEMOGLOBIN 29.4 PG (27.0-31.0); MEAN CORPUSCULAR HGB CONC 33.8 g/dL (33.0-36.5); MEAN CORPUSCULAR VOLUME 87.1 FL (78-98); MEAN PLATELET VOLUME 7.8 FL (7.4-10.4); MONOCYTES # (AUTO) 1.7 X10'3 (0-0.9); MONOCYTES % (AUTO) 12.7 % (2-12); NEUTROPHILS # (AUTO) 9.6 X10'3 (1.8-7.7); NEUTROPHILS % (AUTO) 74.1 % (42-75); PLATELET COUNT 208 X10'3 (140-440); RED BLOOD COUNT 3.86 X10'6 (4.70-6.10); RED CELL DISTRIBUTION WIDTH 14.1 % (11.5-14.5)
[2019-04-16 05:23] LABS: ALBUMIN 2.3 G/DL (3.4-5.0); ANION GAP 10 (8-16); BLOOD UREA NITROGEN 17 MG/DL (7-18); BUN/CREATININE RATIO 18.5 (5.4-32.0); CALCIUM 8.4 MG/DL (8.5-10.1); CHLORIDE 99 MMOL/L (99-107); CREATININE 0.92 MG/DL (0.60-1.10); GLUCOSE 127 MG/DL (70-104); MAGNESIUM 1.9 MG/DL (1.5-2.4); POTASSIUM 3.5 MMOL/L (3.5-5.1); SODIUM 135 MMOL/L (135-145); TOTAL CARBON DIOXIDE 25.6 MMOL/L (24-32); eGFR 79 ML/MIN
--- NOTE | 2019-04-16 06:05 | NUR ---
Problems reprioritized. Patient report given, questions answered & plan of care reviewed with ISABELLA Angeles.
--- NOTE | 2019-04-16 06:15 | NUR ---
Patient in room [facility] 346. I have received report from ISABELLA MORALES and had the opportunity to ask questions and assume patient care.
[2019-04-16 07:00] VITALS: BP 124/65
[2019-04-16] MEDS: K and/or MAG REPLACEMENT MC SCH (08:54)
[2019-04-16] MEDS: oxybutynin 5mg tablet PO SCH ×3 (08:55→21:29)
[2019-04-16] MEDS: risperiDONE 0.5mg tablet PO SCH (08:55)
[2019-04-16] MEDS: lisinopril 5mg tablet PO SCH (08:56)
[2019-04-16] MEDS: levoTHYROXINE 88mcg tablet PO SCH (08:56)
[2019-04-16] MEDS: furosemide 20MG tablet PO SCH (08:56)
[2019-04-16] MEDS: cholecalciferol (vitamin D) 400 unit tablet PO SCH (08:56)
[2019-04-16] MEDS: calcium carbonate/vitamin D3 tablet PO SCH (08:56)
[2019-04-16] MEDS: atorvastatin 20mg tablet PO SCH (08:56)
[2019-04-16] MEDS: lactobacillus rhamnosus 10,000 MMU CELLS/CAPSULE PO SCH ×2 (08:56→21:29)
[2019-04-16] MEDS: metoprolol succinate 25mg (24-HOUR) SR. Tablet PO SCH ×2 (08:56→21:29)
[2019-04-16] MEDS: ascorbic acid 500mg tablet PO SCH (08:57)
[2019-04-16] MEDS ORDERED: pneumococcal 23-VAL P-sac vacc 25 mcg/0.5ml vial IMVAC ONE (10:00)
[2019-04-16 12:10] VITALS: BP 123/71
[2019-04-16] MEDS: HYDROcodone/acetaminophen 5mg/325mg tablet PO PRN (17:55)
--- NOTE | 2019-04-16 18:22 | NUR ---
Problems reprioritized. Patient report given, questions answered & plan of care reviewed with REINA Hameed RN.
--- NOTE | 2019-04-16 18:26 | NUR ---
Patient in room [facility] 346. I have received report from ISABELLA Wesley and had the opportunity to ask questions and assume patient care. Addendum: 04/16/19 at 1827 by Priscila Curiel RN Amended: Links added.
[2019-04-16 20:00] VITALS: BP 145/66
[2019-04-16] MEDS: insulin glargine (Lantus) pen - multi-dose SQ SCH (21:00)
[2019-04-16] MEDS: docusate sod 100mg capsule PO SCH (21:29)
[2019-04-16] MEDS: Melatonin 3mg tablet PO SCH (21:29)
[2019-04-16] MEDS: risperiDONE 0.25mg tablet PO SCH (21:29)
[2019-04-16] MEDS: CefTRIAXone 2gm/D5W 50ml 50 ML IV SCH (21:46)
[2019-04-17] VITALS: BP 113/66
[2019-04-17 04:55] LABS: BASOPHILS # (AUTO) 0.1 X10'3 (0-0.2); EOSINOPHILS # (AUTO) 0.2 X10'3 (0-0.9); EOSINOPHILS % (AUTO) 1.7 % (0-6); HEMOGLOBIN 11.7 g/dl (14.0-17.9); MEAN CORPUSCULAR HEMOGLOBIN 29.8 PG (27.0-31.0); NEUTROPHILS # (AUTO) 9.1 X10'3 (1.8-7.7)
[2019-04-17 04:57] LABS: BASOPHILS % (AUTO) 0.8 % (0-1); LYMPHOCYTES # (AUTO) 1.7 X10'3 (1.1-4.8); LYMPHOCYTES % (AUTO) 12.9 % (21-51); MEAN CORPUSCULAR HGB CONC 34.4 g/dL (33.0-36.5); MEAN CORPUSCULAR VOLUME 86.6 FL (78-98); MEAN PLATELET VOLUME 7.9 FL (7.4-10.4); MONOCYTES # (AUTO) 1.9 X10'3 (0-0.9); MONOCYTES % (AUTO) 14.3 % (2-12); NEUTROPHILS % (AUTO) 70.3 % (42-75); PLATELET COUNT 237 X10'3 (140-440); RED BLOOD COUNT 3.93 X10'6 (4.70-6.10); RED CELL DISTRIBUTION WIDTH 14.1 % (11.5-14.5)
[2019-04-17 05:04] LABS: ALBUMIN 2.2 G/DL (3.4-5.0); ANION GAP 8 (8-16); BLOOD UREA NITROGEN 17 MG/DL (7-18); BUN/CREATININE RATIO 21.3 (5.4-32.0); CALCIUM 8.7 MG/DL (8.5-10.1); CHLORIDE 100 MMOL/L (99-107); GLUCOSE 111 MG/DL (70-104); POTASSIUM 3.6 MMOL/L (3.5-5.1); SODIUM 135 MMOL/L (135-145); eGFR > 90 ML/MIN
--- NOTE | 2019-04-17 06:38 | NUR ---
Problems reprioritized. Patient report given, questions answered & plan of care reviewed with ISABELLA Cuellar.
[2019-04-17 07:30] VITALS: BP 128/81
[2019-04-17] MEDS: K and/or MAG REPLACEMENT MC SCH (07:33)
[2019-04-17] MEDS: calcium carbonate/vitamin D3 tablet PO SCH (07:40)
[2019-04-17] MEDS: metoprolol succinate 25mg (24-HOUR) SR. Tablet PO SCH (07:42)
[2019-04-17] MEDS: lactobacillus rhamnosus 10,000 MMU CELLS/CAPSULE PO SCH (07:42)
[2019-04-17] MEDS: atorvastatin 20mg tablet PO SCH (07:42)
[2019-04-17] MEDS: cholecalciferol (vitamin D) 400 unit tablet PO SCH (07:44)
[2019-04-17] MEDS: ascorbic acid 500mg tablet PO SCH (07:44)
[2019-04-17] MEDS: lisinopril 5mg tablet PO SCH (07:44)
[2019-04-17] MEDS: furosemide 20MG tablet PO SCH (07:44)
[2019-04-17] MEDS: oxybutynin 5mg tablet PO SCH ×2 (07:44→13:04)
[2019-04-17] MEDS: levoTHYROXINE 88mcg tablet PO SCH (07:45)
[2019-04-17] MEDS: risperiDONE 0.5mg tablet PO SCH (07:49)
--- NOTE | 2019-04-17 10:33 | NUR ---
UNABLE TO DISCHARGE PT AT THIS TIME. NEED CLARIFICATION FROM MD CONCERNING PT. TEMPERATURE AND SHAVER CATHETER.
[2019-04-17 11:37] VITALS: BP 111/68
--- NOTE | 2019-04-17 11:37 | NUR ---
PAGER ID: [phone] MESSAGE: [phone] WENDY WOLF CANNOT D/C PT. UNTIL RECEIVE ORDER CLARIFICATION. PLEASE CALL ME AT [phone]
--- NOTE | 2019-04-17 12:09 | NUR ---
SPOKE WITH MD HUFFMAN. MELANIE TO D/C TEMP.RESOLVED... PT WILL BE DC'D ON ATB. SHAVER ORDER PER PROTOCOL FOR ACUTE RETENTION. WAITING FOR MD TO COMPLETE DISCHARGE.
--- NOTE | 2019-04-17 13:36 | NUR ---
Called to give report to CLARENCE Machado. She had a chance to ask any questions she needed to and has this nurses contact information for any other concerns.
--- NOTE | 2019-04-17 15:55 | NUR ---
Pt. transferred to [facility] at 1556. VSS at time of discharge. IV removed, pressure bandage applied, no s/sx bleeding noted. Transfer packet given to [employer] staff, DNR on top. Report called to facility. They are aware they are receiving patient. Patient left on a gurney to [facility], escorted by two [employer] staff. Belongings sent with pt. is aware of transfer. Antibiotic orders in transfer packet.
--- NOTE | 2019-04-17 16:11 | NUR ---
equipment monitor phototypesetting left on pt. during transfer. Called [employer] as pt. had just left. They were unable to reach their drivers. Called . nurse taking pt. stated the would return tele monitor to [employer] and let them know to return it to us or call us. They have this nurse's contact information.
== END 2019-04-17 16:00 | DRG 698 ==
LOC: ER 19:01 → SUR 3N 23:26 → CMPBEDREQ 23:50
PROVIDERS: ADMIT Hospitalist; ATTEND Hospitalist
PROC: 0T9B80Z Drainage of Bladder with Drainage Device, Via Natural or Artificial Opening Endoscopic (ICD-10-PCS; principal; 2019-04-14)
PROC: 3E0234Z Introduction of Serum, Toxoid and Vaccine into Muscle, Percutaneous Approach (ICD-10-PCS; 2019-04-16)
DX: T83.518A Infection and inflammatory reaction due to other urinary catheter, initial encounter (principal); A41.9 Sepsis, unspecified organism; G92 Toxic encephalopathy; N39.0 Urinary tract infection, site not specified; N36.5 Urethral false passage; R31.9 Hematuria, unspecified; E11.9 Type 2 diabetes mellitus without complications; E78.00 Pure hypercholesterolemia, unspecified; Z66 Do not resuscitate; E07.9 Disorder of thyroid, unspecified; F03.90 Unspecified dementia, unspecified severity, without behavioral disturbance, psychotic disturbance, mood disturbance, and anxiety; I10 Essential (primary) hypertension; I48.91 Unspecified atrial fibrillation; Z82.49 Family history of ischemic heart disease and other diseases of the circulatory system; Z82.3 Family history of stroke; Z23 Encounter for immunization; Z82.5 Family history of asthma and other chronic lower respiratory diseases; Z79.02 Long term (current) use of antithrombotics/antiplatelets; Z86.73 Personal history of transient ischemic attack (TIA), and cerebral infarction without residual deficits; Z79.82 Long term (current) use of aspirin; Z79.899 Other long term (current) drug therapy
CPT/HCPCS: 36415; 71045; 80048; 80053; 81001; 82948; 83036; 83605; 83735; 84145; 85025; 85610; 87040; 87081; 87088; 90732; 93005; 94640; 96361; 96365; 96375; 97110; 97161; 97530; 99285; G0378; J0696; J1815; J1940; J2270; J2405; J7030

== ENCOUNTER 2021-04-07 12:52 | Emergency (ER) | payer MEDICARE, MEDICAID ==
[~2021-04-07] VITALS: Ht 175.3 cm; Wt 90.9 kg
[~2021-04-07 12:52] MED LIST changes: -ASCO500C15 PO; +ASCO500C18 PO; -ASPI-1264 PO; +BISA10SU60 PR; +CHOL400T32 PO; +CRAN450C PO; -DABI150C PO; +DOCU100C41 PO; +ESCI-8 PO; -ESCI10TA54 PO; +FURO-150 PO; -LISI-604 PO; +LISI-790 PO; +MELA3TAB39 PO; +NA P133E4 RC; +POLY17PO10 PO; +RISP0.5T74 PO; +TOLT4CAP PO
[2021-04-07 13:25] LABS: BASOPHILS # (AUTO) 0.1 X10'3 (0-0.2); BASOPHILS % (AUTO) 0.3 % (0-1); EOSINOPHILS % (AUTO) 0.3 % (0-6); HEMATOCRIT 39.9 % (42.0-52.0); HEMOGLOBIN 13.4 g/dl (14.0-17.9); LYMPHOCYTES # (AUTO) 2.2 X10'3 (1.1-4.8); LYMPHOCYTES % (AUTO) 14.8 % (21-51); MEAN CORPUSCULAR HEMOGLOBIN 30.4 PG (27.0-31.0); MEAN CORPUSCULAR HGB CONC 33.4 g/dL (33.0-36.5); MEAN CORPUSCULAR VOLUME 90.9 FL (78-98); MEAN PLATELET VOLUME 8.8 FL (7.4-10.4); MONOCYTES # (AUTO) 2.2 X10'3 (0-0.9); MONOCYTES % (AUTO) 14.6 % (2-12); NEUTROPHILS # (AUTO) 10.3 X10'3 (1.8-7.7); PLATELET COUNT 206 X10'3 (140-440); WHITE BLOOD COUNT 14.7 X10'3 (4.5-11.0)
[2021-04-07 13:26] LABS: CLARITY,URINE CLOUDY (Clear); COLOR,URINE STRAW (Yellow); GLUCOSE, URINE NEGATIVE (Neg); KETONES,URINE NEGATIVE (Neg); LEUKOCYTE ESTERASE ,URINE LARGE (Neg); NITRITES, URINE POSITIVE (Neg); OCCULT BLOOD,URINE MODERATE (Neg); PH,URINE 5.5 (4.8-8.0); PROTEIN,URINE 100 mg/dl (Neg); UROBILINOGEN,URINE 0.2 E.U/dL (0.2-1.0)
[2021-04-07 13:33] LABS: ALANINE AMINOTRANSFERASE 18 U/L (12-78); ALBUMIN 2.7 G/DL (3.4-5.0); ALBUMIN/GLOBULIN RATIO 0.5 (1.1-1.5); ANION GAP -2 (8-16); ASPARTATE AMINO TRANSFERASE 28 U/L (10-37); BILIRUBIN,TOTAL 1.3 MG/DL (0.1-1.0); BLOOD UREA NITROGEN 16 MG/DL (7-18); BUN/CREATININE RATIO 12.4 (5.4-32.0); CALCIUM 8.4 MG/DL (8.5-10.1); CHLORIDE 102 MMOL/L (99-107); CREATININE 1.29 MG/DL (0.60-1.10); GLUCOSE 146 MG/DL (70-104); SODIUM 129 MMOL/L (135-145); TOTAL CARBON DIOXIDE 28.9 MMOL/L (24-32); TOTAL PROTEIN 7.9 G/DL (6.4-8.2); eGFR 53 ML/MIN
[2021-04-07 13:34] LABS: UA COLLECTION TYPE STRAIGHT CATH
[2021-04-07 13:36] LABS: RBC,URINE 0-2 /HPF (0-2); WBC,URINE TNTC /HPF (0-4)
[2021-04-07 13:37] LABS: BACTERIA,URINE 4+ /HPF (Neg); SQUAMOUS EPITHELIAL CELL,UR FEW /LPF (FEW)
[2021-04-07 13:38] LABS: HYALINE CASTS 0-3 /LPF (NEGATIVE)
[2021-04-07 13:44] LABS: PLATELET ESTIMATE NORMAL; TOTAL CELLS COUNTED 100
[2021-04-07 13:50] LABS: ALKALINE PHOSPHATASE 110 IU/L (46-116)
[2021-04-07] MEDS ORDERED: normal saline 1000ml 1,000 ML IV ONE (14:30)
[2021-04-07] MEDS ORDERED: CefTRIAXone 2gm/D5W 50ml BAG 50 ML IV ONE (14:30)
[2021-04-07 15:04] LABS: ABG BASE EXCESS 1.9 mmol/L (-2.0-2.0); ABG HCO3 25.4 mmol/L (22.0-26.0); ABG OXYGEN SATURATION 95.2 % (94-97); ABG PCO2 (T) 36.1 mmHg (35.0-48.0); ALLEN'S TEST POSITIVE; FCOHb 1.2 % (0.0-3.9); FMetHb 0.1 % (0.0-1.5); TOTAL HEMOGLOBIN 14.1 G/dl (14.0-18.0)
[2021-04-07] MEDS ORDERED: ciprofloxacin 250mg tablet PO ONE (15:45)
[2021-04-07] MEDS ORDERED: FURO-150 PO (16:35)
[2021-04-07] MEDS ORDERED: CIPR-202 PO (16:35)
[2021-04-07 16:45] VITALS: BP 115/70
== END 2021-04-07 18:56 | disposition home or self-care (01) ==
LOC: ER 12:53
DX: N39.0 Urinary tract infection, site not specified (principal); I50.9 Heart failure, unspecified; R09.89 Other specified symptoms and signs involving the circulatory and respiratory systems; I48.91 Unspecified atrial fibrillation; E78.00 Pure hypercholesterolemia, unspecified; I10 Essential (primary) hypertension; E11.9 Type 2 diabetes mellitus without complications; Z86.73 Personal history of transient ischemic attack (TIA), and cerebral infarction without residual deficits; Z87.440 Personal history of urinary (tract) infections; Z95.0 Presence of cardiac pacemaker; Z72.89 Other problems related to lifestyle; Z79.2 Long term (current) use of antibiotics; Z79.899 Other long term (current) drug therapy
CPT/HCPCS: 36415; 36600; 71045; 80053; 81001; 82803; 83605; 83880; 84145; 85007; 85018; 85025; 87040; 87077; 87088; 87186; 96365; 96366; 99284; J0696